=== PATIENT | female | born 1995 | race Caucasian/White ===

== ENCOUNTER 2017-08-09 17:24 | Emergency (ER) | payer BC ==
[2017-08-09 18:03] VITALS: BP 121/77
--- NOTE | 2017-08-09 18:19 | UC ---
Respiratory Complaint HPI - HPI Summary HPI Summary: 22 yo WF c/o worsening right cough associated with pleuritic CP x 2 weeks. Started out with a URI about 2 weeks ago, cough became less frequent but now cough feels deeper and with worsening lower right chest wall pain. Denies f/c/ sputum - History of Current Complaint Chief Complaint: UCGeneralIllness Stated Complaint: CHEST CONGESTION Time Seen by Provider: 08/09/17 17:58 Hx Obtained From: Patient Hx Last Menstrual Period: 3 WKS AGO Onset/Duration: Sudden Onset Timing: Constant Severity Initially: Moderate Severity Currently: Moderate Pain Intensity: 3 Character: Cough: Nonproductive - Allergies/Home Medications Allergies/Adverse Reactions: Allergies Allergy/AdvReac Type Severity Reaction Status Date / Time No Known Allergies Allergy Verified 08/09/17 17:57 Home Medications: Home Medications Norgestimate-Ethinyl Estradiol [Sprintec 28 Day Tablet] 1 tab PO DAILY 08/09/17 [History Confirmed 08/09/17] PMH/Surg Hx/FS Hx/Imm Hx Previously Healthy: Yes - Surgical History Surgical History: None - Social History Alcohol Use: Occasionally Substance Use Type: None Smoking Status (MU): Never Smoked Tobacco Review of Systems Constitutional: Negative Skin: Negative Eyes: Negative ENT: Negative Respiratory: Cough Cardiovascular: Negative Gastrointestinal: Negative Genitourinary: Negative Motor: Negative Neurovascular: Negative Musculoskeletal: Negative Neurological: Negative Psychological: Negative Is Patient Immunocompromised?: No All Other Systems Reviewed And Are Negative: Yes Physical Exam Triage Information Reviewed: Yes Vital Signs: Initial Vital Signs Temp 36.8 C 08/09/17 17:59 Pulse 92 08/09/17 17:59 Resp 20 08/09/17 17:59 BP 121/77 08/09/17 17:59 Pulse Ox 98 08/09/17 17:59 Eye Exam: Normal ENT Exam: Normal Dental Exam: Normal Neck exam: Normal Neck: Positive: 1 Respiratory Exam: Normal Respiratory: Positive: Rhonchi - moderate- with cough. Negative: Stridor, Wheezing Cardiovascular Exam: Normal Abdominal Exam: Normal Musculoskeletal Exam: Normal Neurological Exam: Normal Psychological Exam: Normal Skin Exam: Normal UC Diagnostic Evaluation - Laboratory O2 Sat by Pulse Oximetry: 98 Respiratory Course/Dx - Course Course Of Treatment: viral URI progressing to possible bacterial bronchitis - Differential Dx/Diagnosis Provider Diagnoses: Bronchitis Discharge - Discharge Plan Condition: Improved Disposition: HOME Prescriptions: Azithromycin TAB* [Zithromax TAB (Z-EDGAR) 250 mg #6 tabs] 2 tab PO .TODAY, THEN 1 DAILY #1 edgar Patient Education Materials: Acute Bronchitis (ED) Referrals: Caro Zuleta MD [Primary Care Provider] - Additional Instructions: take medication as directed
== END 2017-08-09 18:19 | disposition home or self-care (01) ==
LOC: UCCORT 17:24
DX: J40 Bronchitis, not specified as acute or chronic (principal)
CPT/HCPCS: 99212; G0463

== ENCOUNTER 2018-01-05 09:05 | Emergency (ER) | payer BC ==
[2018-01-05 09:28] VITALS: BP 128/88
--- NOTE | 2018-01-05 09:47 | UC ---
Complaint Female HPI - HPI Summary HPI Summary: urinary frequency and urgency for the past 4-5 days which started about 2 days after intercourse. Patient denies chills, fever or flank pain. States burning is mild to moderate and right now it does not bother her. - History Of Current Complaint Chief Complaint: UCGU Stated Complaint: URINARY Time Seen by Provider: 01/05/18 09:07 Hx Obtained From: Patient Hx Last Menstrual Period: last week ?: No Onset/Duration: Gradual Onset, Lasting Days Timing: Intermittent Severity Initially: Mild Severity Currently: Mild Pain Intensity: 2 Character: Burning Aggravating Factor(s): Urination Alleviating Factor(s): Nothing - Risk Factors Ectopic Risk Factor: Negative Ovarian Torsion Risk Factor: Negative - Allergies/Home Medications Allergies/Adverse Reactions: Allergies Allergy/AdvReac Type Severity Reaction Status Date / Time No Known Allergies Allergy Verified 08/09/17 17:57 Home Medications: Home Medications Pumpkin Seed Extract/Soy Germ [Azo Bladder Control Capsule] 300 mg PO BID PRN [History Confirmed 01/05/18] PMH/Surg Hx/FS Hx/Imm Hx Previously Healthy: Yes - Surgical History Surgical History: None - Family History Known Family History: Positive: Diabetes - Social History Alcohol Use: Occasionally Substance Use Type: None Smoking Status (MU): Never Smoked Tobacco Review of Systems Genitourinary: Dysuria, Frequency All Other Systems Reviewed And Are Negative: Yes Physical Exam Triage Information Reviewed: Yes Appearance: Well-Appearing Vital Signs: Initial Vital Signs Temp 98.1 F 01/05/18 09:19 Pulse 105 01/05/18 09:19 Resp 20 01/05/18 09:19 BP 128/88 01/05/18 09:19 Pulse Ox 99 01/05/18 09:19 Vital Signs Reviewed: Yes Eyes: Positive: Conjunctiva Clear ENT: Positive: Hearing grossly normal Neck: Positive: Supple, Nontender, No Lymphadenopathy Respiratory: Positive: Chest non-tender, Lungs clear, Normal breath sounds, No respiratory distress Cardiovascular: Positive: RRR, No Murmur, Pulses Normal, Brisk Capillary Refill Abdomen Description: Positive: Nontender, No Organomegaly, Soft Musculoskeletal: Positive: Strength Intact, ROM Intact, No Edema Complaint Female Dx - Course Course Of Treatment: UA positive for leukocytes and blood. Patient to start macrobid and aggressive hydration. F/u with PCP - Differential Dx/Diagnosis Provider Diagnoses: UTI Discharge - Sign-Out/Discharge Documenting (check all that apply): Patient Departure - Discharge Plan Condition: Stable Disposition: HOME Prescriptions: Nitrofurantoin Monohyd/M-Cryst [Macrobid 100 mg Capsule] 100 mg PO BID 7 Days # 14 cap Patient Education Materials: Urinary Tract Infection in Women (ED), Nitrofurantoin Macrocrystals (By mouth) Referrals: Caro Zuleta MD [Primary Care Provider] - - Billing Disposition and Condition Condition: STABLE Disposition: Home
== END 2018-01-05 09:50 | disposition home or self-care (01) ==
LOC: UCCORT 09:05
DX: N39.0 Urinary tract infection, site not specified (principal); B96.20 Unspecified Escherichia coli [E. coli] as the cause of diseases classified elsewhere
CPT/HCPCS: 81003; 84702; 87077; 87086; 87186; 99212; G0463